=== PATIENT | female | born 1985 | race Caucasian/White ===

== ENCOUNTER 2017-01-26 17:01 | Emergency (ER) | payer OTHER ==
[~2017-01-26] VITALS: Ht 165.1 cm; Wt 67.9 kg
[~2017-01-26 17:01] MED LIST: ACET-1757 PO; IBUP-1222 PO; LACT1TAB3 PO
[2017-01-26] MEDS ORDERED: ONDA4TAB10 PO (18:05)
[2017-01-26 18:31] LABS: BLOOD UREA NITROGEN 9 mg/dL (7-18)
[2017-01-26 19:10] VITALS: BP 128/84
== END 2017-01-26 19:14 | disposition home or self-care (01) ==
LOC: ED 18:22
DX: N83.292 Other ovarian cyst, left side (principal); R11.0 Nausea
CPT/HCPCS: 36415; 76830; 80048; 81003; 82040; 84703; 85025; 99285

== ENCOUNTER 2021-04-09 07:13 | Emergency (ER) | payer OTHER ==
[~2021-04-09] VITALS: Ht 165.1 cm; Wt 71.2 kg
[~2021-04-09 07:13] MED LIST changes: -ACET-1757 PO; +ACET-2065 PO; +ONDA4TAB10 PO
[2021-04-09] MEDS ORDERED: MORPHINE SULFATE 4 MG/ML, 1ML ONE ×2 (07:46→10:08)
[2021-04-09] MEDS ORDERED: ONDANSETRON 2MG/ML, 2ML ONE ×2 (07:46→10:08)
[2021-04-09] MEDS: MORPHINE SULFATE 4 MG/ML, 1ML IVPush PRN ×2 (07:50→10:11)
[2021-04-09 08:00] LABS: MICROSCOPIC INDICATED
[2021-04-09] MEDS ORDERED: ONDANSETRON 2MG/ML, 2ML IVPush ONE ×2 (08:00→10:30)
--- NOTE | 2021-04-09 08:01 | NUR ---
PT OFF THE FLOOR TO ULTRASOUND
[2021-04-09 08:11] LABS: BASOPHILS % (AUTO) 1 % (0-1); EOSINOPHILS % (AUTO) 0 % (1-7); LYMPHOCYTES % (AUTO) 34 % (22-44); MEAN CORPUSCULAR HEMOGLOBIN 30.2 pg (27.0-34.8); MEAN CORPUSCULAR HGB CONC 33.7 g/dL (32.4-35.8); MONOCYTES % (AUTO) 13 % (2-9); NEUTROPHILS % (AUTO) 53 % (42-75); PLATELET COUNT 107 x10^3/uL (130-400); RED BLOOD COUNT 4.91 x10^6/uL (3.82-5.3); RED CELL DISTRIBUTION WIDTH 12.8 % (9.6-15.2)
[2021-04-09 08:21] LABS: ALBUMIN 3.8 g/dL (3.4-5.0); ANION GAP 5 mmol/L (5-15); CALCIUM 8.4 mg/dL (8.5-10.1); CHLORIDE 106 mmol/L (98-107); CREATININE 0.74 mg/dL (0.55-1.02)
[2021-04-09 10:58] VITALS: BP 122/68
--- NOTE | 2021-04-09 10:58 | NUR ---
PT REC'VD DISCHARGE INSTRUCTIONS AND EDUCATION. PT HAD NO FURTHER QUESTIONS. PT AMBULATED TO DC AREA, STEADY GAIT.
== END 2021-04-09 11:28 | disposition home or self-care (01) ==
LOC: ED 11:00
DX: N30.00 Acute cystitis without hematuria (principal); R10.31 Right lower quadrant pain; R10.32 Left lower quadrant pain; R11.0 Nausea
CPT/HCPCS: 36415; 76830; 80048; 81001; 82040; 84703; 85025; 87086; 96374; 96375; 96376; 99284; J2270; J2405